=== PATIENT | female | born 1995 | race Caucasian/White ===

== ENCOUNTER 2020-04-18 20:11 | Emergency (ER) | payer MEDICAID ==
[~2020-04-18] VITALS: Ht 170.2 cm; Wt 65.8 kg
[2020-04-18 20:35] VITALS: Ht 170.2 cm; Wt 65.8 kg
[2020-04-19 00:26] VITALS: BP 102/66
== END 2020-04-19 00:18 | disposition home or self-care (01) ==
LOC: ED 20:11
DX: O23.42 Unspecified infection of urinary tract in pregnancy, second trimester (principal); Z3A.19 19 weeks gestation of pregnancy